=== PATIENT | male | born 1965 | race Two or more races ===

== ENCOUNTER 2025-08-23 12:22 | Inpatient (IN) | payer OTHER ==
[~2025-08-23] VITALS: Ht 177.8 cm; Wt 76.7 kg
[2025-08-23] MEDS ORDERED: ATACAND16 MG PO (13:27)
[2025-08-23] MEDS ORDERED: TOPROL XL25 M1 PO (13:27)
[2025-08-23] MEDS ORDERED: EZALLOR SPRINKLE5 MG PO (13:28)
--- NOTE | 2025-08-23 13:28 | NUR ---
SE RECIBE PACIENTE ALERTA Y CONCIENTE X3. EL MISMO REFIERE TENER GRACE FISURA ANAL INTERNA Y TENER REFERIDO DEL DR. JOJO SUN POR ANEMIA. SE PROCEDE A ARLENE S/V A PACIENTE Y SE UBICA EN VIDA K1 CON BARANDAS ELEVADAS Y NIVEL MAS BAJO DE LA MISMA.
[2025-08-23] MEDS ORDERED: 0.9 % SODIUM CHLORIDE 500 ML IV ONE (14:45)
[2025-08-23] MEDS ORDERED: hydrALAZINE HCL 20 MG VIAL IV PRN (15:00)
[2025-08-23 16:49] LABS: BASO % 0.4 % (0.1-1.2); EOS # 0.03 (0.04-0.54); EOS % 0.4 % (0.7-7.0); LYMPH # 0.73 (1.18-3.74); LYMPH % 10.9 % (19.3-53.1); MEAN PLATELET VOLUME 10.10 fl (9.4-12.4); MONO # 0.56 (0.24-0.82); MONO % 8.4 % (4.7-12.5); NEUT # 5.34 (1.56-6.13); NEUT % 79.8 % (34.0-71.1); RED CELL DISTRIBUTION WIDTH 16.2 % (11.6-14.4)
[2025-08-23 17:15] LABS: INR 1.08
[2025-08-23 17:22] LABS: GAMMA GLUTAMIL TRANSFERASE 288.0 U/L (15-85)
[2025-08-23 17:23] LABS: ALT/SGPT 79.0 U/L (12-78); AST/SGOT 139.0 U/L (15-37); BILIRUBIN TOTAL 0.86 mg/dL (0.3-1.2); BILIRUBIN,CONJUGATED 0.48 mg/dL (0.0-0.2); BUN CREA RATIO 13.0 (7.0-25.0); CREATININE SERUM 2.35 mg/dL (0.70-1.30); GFR 28.63; GLOBULINA 4.0 G/DL (2.4-3.5); GLUCOSE FASTING 104.0 mg/dL (65-100); OSMOLALITY SERUM 282.0 MOSM/KG (275-295)
[2025-08-23 18:10] LABS: URINE APPEARANCE Clear; URINE BILIRRUBIN Negative (NEGATIVE); URINE BLOOD Large; URINE COLOR Yellow; URINE GLUCOSE Negative (NEGATIVE); URINE KETONE 15 (NEGATIVE); URINE LEUKOCYTE Trace; URINE NITRATE Negative; URINE UROBILINOGEN 1.0 E.U./dl
[2025-08-23 18:19] LABS: URINE BACTERIA 32.3 uL (0.0-1933); URINE CAST 1.61 uL (0.0-1.40); URINE EPITHELIAL CELLS 24.3 uL (0.0-38.8); URINE WBC 9.3 uL (0.0-23.2)
[2025-08-23 18:37] LABS: URINE PROTEIN 100 (NEGATIVE); URINE RBC 0.7 uL (0.0-20.8)
[2025-08-23 18:38] LABS: URINE CRYSTALS FEW /HPF; URINE MUCUS SCANT
[2025-08-23 18:40] LABS: TYPE CELLS SQUAMOUS
[2025-08-24 03:41] VITALS: BP 109/72; O2SAT 100
[2025-08-24 05:40] LABS: TSH 3.1 uIU/mL (0.358-3.74)
[2025-08-24 08:00] VITALS: BP 81/46; O2SAT 99
[2025-08-24] MEDS ORDERED: METOPROLOL SUCCINATE 25 MG TAB.SR.24H PO SCH (09:00)
[2025-08-24] MEDS ORDERED: PANTOPRAZOLE SODIUM 40 MG/VIAL VIAL IV SCH (09:00)
[2025-08-24 16:49] VITALS: BP 103/69; O2SAT 100
[2025-08-25 02:09] VITALS: BP 103/67; O2SAT 100
[2025-08-25 05:27] LABS: ALT/SGPT 56.0 U/L (12-78); AST/SGOT 73.0 U/L (15-37); BILIRUBIN TOTAL 1.08 mg/dL (0.3-1.2); BUN CREA RATIO 13.0 (7.0-25.0); CREATININE SERUM 2.06 mg/dL (0.70-1.30); GFR 33.33; GLOBULINA 3.2 G/DL (2.4-3.5); GLUCOSE FASTING 108.0 mg/dL (65-100); OSMOLALITY SERUM 288.0 MOSM/KG (275-295)
[2025-08-25 08:19] VITALS: BP 109/68; O2SAT 99
[2025-08-25 17:00] VITALS: BP 111/69; O2SAT 99
[2025-08-26 01:47] LABS: BASO % 0.6 % (0.1-1.2); EOS # 0.03 (0.04-0.54); EOS % 0.6 % (0.7-7.0); LYMPH # 0.50 (1.18-3.74); LYMPH % 9.3 % (19.3-53.1); MEAN PLATELET VOLUME 10.90 fl (9.4-12.4); MONO # 0.74 (0.24-0.82); NEUT # 4.04 (1.56-6.13); NEUT % 75.5 % (34.0-71.1)
[2025-08-26 01:48] LABS: MONO % 13.8 % (4.7-12.5); RED CELL DISTRIBUTION WIDTH 19.9 % (11.6-14.4)
[2025-08-26 02:45] VITALS: BP 120/81
[2025-08-26 09:45] VITALS: BP 109/72; O2SAT 97
[2025-08-26 16:28] VITALS: BP 117/78; O2SAT 100
[2025-08-26] MEDS ORDERED: AMINO ACIDS/PROTEIN HYDROLYS 30 ML BLIST.PACK PO SCH (17:00)
[2025-08-26 17:43] LABS: BASO % 0.5 % (0.1-1.2); EOS # 0.03 (0.04-0.54); EOS % 0.5 % (0.7-7.0); LYMPH # 0.59 (1.18-3.74); LYMPH % 9.6 % (19.3-53.1); MEAN PLATELET VOLUME 10.40 fl (9.4-12.4); MONO # 0.85 (0.24-0.82); NEUT # 4.62 (1.56-6.13); NEUT % 75.3 % (34.0-71.1); RED CELL DISTRIBUTION WIDTH 19.3 % (11.6-14.4)
[2025-08-26 17:50] LABS: MONO % 13.8 % (4.7-12.5)
[2025-08-27 00:29] VITALS: BP 114/74; O2SAT 99
[2025-08-27 08:26] VITALS: BP 128/85
[2025-08-27] MEDS ORDERED: ABANEU-SL TABL1 EACH SL (13:11)
[2025-08-27] MEDS ORDERED: FUSION PLUS CA1 EACH PO (13:11)
[2025-08-27] MEDS ORDERED: TOPROL XL25 M1 PO (13:11)
[2025-08-27] MEDS ORDERED: PROTEINEX-18 LI30 ML PO (13:11)
[2025-08-27] MEDS ORDERED: PANTOPRAZOLE SO40 MG PO (13:11)
== END 2025-08-27 15:18 | disposition home or self-care (01) | DRG 394 ==
LOC: ER 12:22 → SEC-K 15:00 → MEDI 15:00
PROVIDERS: General Practice; Internal Medicine Nephrology; ADMIT Internal Medicine Geriatric Medicine; ATTEND Internal Medicine Geriatric Medicine
PROC: BW40ZZZ Ultrasonography of Abdomen (ICD-10-PCS; 2025-08-23)
PROC: 30233N1 Transfusion of Nonautologous Red Blood Cells into Peripheral Vein, Percutaneous Approach (ICD-10-PCS; principal; 2025-08-24)
DX: K60.2 Anal fissure, unspecified (principal); D68.9 Coagulation defect, unspecified; K62.5 Hemorrhage of anus and rectum; N17.9 Acute kidney failure, unspecified; N18.4 Chronic kidney disease, stage 4 (severe); D64.89 Other specified anemias; D69.59 Other secondary thrombocytopenia; I12.9 Hypertensive chronic kidney disease with stage 1 through stage 4 chronic kidney disease, or unspecified chronic kidney disease; F10.10 Alcohol abuse, uncomplicated; Z87.891 Personal history of nicotine dependence; Y90.9 Presence of alcohol in blood, level not specified